=== PATIENT | male | born 1950 | race Caucasian/White ===

== ENCOUNTER 2020-04-09 09:24 | Day surgery (SDC) | payer MEDICARE ==
[2020-04-09] VITALS (12 sets, daily range): BP systolic 115–136; BP diastolic 69–95; PULSE 56–74; TEMP 97.8
[~2020-04-09] VITALS: Ht 175.3 cm; Wt 115.8 kg
[~2020-04-09 09:24] MED LIST: GLUCOPHAGE500 MG/TAB; NAPROSYN 2250 MG/TAB PO; PRIL40 PO; TRADJENTA5 MG PO; ULTRAM 50MG TAB50 MG PO; ZOCOR 40MG40 MG PO
[2020-04-09 10:46] LABS: PROTHROMBIN TIME 11.7 SECONDS (9.7-12.8)
[2020-04-09 10:49] LABS: PARTIAL THROMBOPLASTIN TIME 34.2 SECONDS (26.0-37.0)
[2020-04-09 10:51] LABS: CALCIUM 8.9 mg/dL (8.4-10.2); CREATININE, serum 0.87 (0.66-1.25); POTASSIUM 3.9 mmol/L (3.4-5.0)
[2020-04-09] MEDS ORDERED: DUO-KAPS1 CAP PO (10:51)
[2020-04-09] MEDS ORDERED: ASPIRIN 81M81 MG/TA2 PO (10:52)
[2020-04-09] MEDS ORDERED: AMARYL4 MG PO (10:52)
[2020-04-09] MEDS ORDERED: SUPER BETA PROSTATE PO (10:53)
[2020-04-09 11:00] LABS: HEMATOCRIT 48.3 % (42.0-52.0); MEAN CELL VOLUME 99 fl (80.0-100.0); MEAN CORPUSCULAR HEMOGLOBIN 33 pg (27.0-31.0); MEAN CORPUSCULAR HGB CONC 33 g/dl (33.0-37.0); MEAN PLATELET VOLUME 9.9 fl (7.4-10.4); PLATELET COUNT 236 K/mm3 (130-400); RED BLOOD COUNT 4.88 M/mm3 (4.20-5.60); REDCELL DISTRIBUTION WIDTH-CV 13.1 % (11.5-14.5)
--- NOTE | 2020-04-09 11:40 | NUR ---
Pt to procedure at this time.
--- NOTE | 2020-04-09 11:57 | NUR ---
SEE MERGE DOCUMENTATION FOR MEDICATION ADMINISTRATION TIMES AND INTRA/POST PROCEDURE SEDATION ASSESSMENTS. RIGHT HAND BARBEAU TEST POSITIVE.
[2020-04-09] MEDS ORDERED: IMDUR 30MG30 MG/TAB PO (13:23)
[2020-04-09] MEDS ORDERED: TOPROL XL 25MG25 MG PO (13:23)
--- NOTE | 2020-04-09 15:56 | NUR ---
Air was removed from TR band in 2-4 ml increments without issue. Site dressed with folded 2x2 and bandaid. Arm board sent with pt, and he is aware of activity restrictions with rt arm. IV is DC'd with catheter intact, bleeding controlled at site. Rt groin dressing remains clean, dry and intact, and site remains soft to palpation. Pt has been ambulatory about room with steady gait. Pt expresses understanding of DC instructions. He is assisted out by wheelchair to 's car.
== END 2020-04-09 18:52 | disposition home or self-care (01) ==
LOC: COL.CAR 09:24
PROVIDERS: Internal Medicine Cardiovascular Disease
DX: I25.10 Atherosclerotic heart disease of native coronary artery without angina pectoris (principal); R94.39 Abnormal result of other cardiovascular function study; E66.9 Obesity, unspecified; E11.9 Type 2 diabetes mellitus without complications; E78.5 Hyperlipidemia, unspecified; M19.90 Unspecified osteoarthritis, unspecified site; I50.32 Chronic diastolic (congestive) heart failure
CPT/HCPCS: C1769; C1894; J1644; J2250; J3010; Q9967

== ENCOUNTER 2023-06-04 09:01 | Day surgery (SDC) | payer MEDICARE ==
[~2023-06-04] VITALS: Ht 182.9 cm; Wt 120.9 kg
[~2023-06-04 09:01] MED LIST changes: +AMARYL4 MG PO; +ASPIRIN 81M81 MG/TA2 PO; +DUO-KAPS1 CAP PO; +IMDUR 30MG30 MG/TAB PO; +LR 1,000 ML IV SCH; +Ondansetron 4 MG/2 ML VIAL IV PRN; +SUPER BETA PROSTATE PO; +TOPROL XL 25MG25 MG PO
[2023-06-04] MEDS ORDERED: Lidocaine PF 2% (20 MG/ML) 5 ML VIAL ONE (10:05)
[2023-06-04 11:05] VITALS: BP 120/71; PULSE 84
--- NOTE | 2023-06-04 11:05 | NUR ---
PATIENT RETURNS TO [facility] PER CART AND ASSISTED TO RECLINER WITH TWO PERSON STANDBY ASSIST. ALERT AND ORIENTED. DENIES NAUSEA OR ABDOMINAL PAIN. IVF INFUSING. SPOUSE IN ROOM. DR. FU DID COME IN AND TALK WITH THE SPOUSE AND ALL QUESTIONS ANSWERED. WAS INFORMED OF POLYPS X4 BEING REMOVED. PATIENT REQUESTS SNACK AND GIVEN PEANUT BUTTER WITH CRACKERS AND GRAPE JUICE. TEMP 97.1. 1120 114/84, 83, 16, 98%. ON ROOM AIR. TOLERATED SNACK AND DENIES ANY NAUSEA. SPOUSE IN ROOM. 1130 PATIENT DRESSED SELF. ANXIOUS TO GO HOME. 1133 IV DC'D. PATIENT IS ASKING TO GO HOME. DR. FU IN ANOTHER PROCEDURE. CALLED RONNA RN WHO RELAYS THIS TO MD AND PATIENT MAYBE DISCHARGED. WAS INSTRUCTED ON THE DIFFERENCE BETWEEN DIVERTICULOSIS AND DIVERTICULITIS. 1153 DISMISSAL INSTRUCTIONS SIGNED AND ASSISTED INTO WHEELCHAIR. 1158 PATIENT DISCHARGED TO HOME PER PRIVATE VEHICLE DRIVEN BY SPOUSE. DISMISSED WITH INSTRUCTIONS IN HAND.
[2023-06-04 11:36] VITALS: BP 138/85; PULSE 105
[2023-06-04] MEDS ORDERED: IMDUR 30MG30 MG/TAB PO (11:43)
[2023-06-04] MEDS ORDERED: LASIX 40MG TABL40 MG PO (11:44)
[2023-06-04] MEDS ORDERED: TYLENOL 325MG325 MG PO (11:45)
== END 2023-06-04 12:00 | disposition home or self-care (01) ==
LOC: SDCO 09:01
DX: D12.2 Benign neoplasm of ascending colon (principal); K57.30 Diverticulosis of large intestine without perforation or abscess without bleeding; K63.5 Polyp of colon; F17.210 Nicotine dependence, cigarettes, uncomplicated; E66.9 Obesity, unspecified
CPT/HCPCS: J2704; J7120